=== PATIENT | male | born 1990 | race Caucasian/White ===

== ENCOUNTER 2018-12-31 14:26 | Emergency (ER) | payer OTHER ==
[2018-12-31 14:31] VITALS: BP 112/76
--- NOTE | 2018-12-31 14:34 | EDPHY ---
H & P Stated Complaint: tooth pain Time Seen by Provider: 12/31/18 14:33 HPI/ROS: HPI: This is a 28-year-old male who presents with Chief Complaint: Right lower tooth pain, impacted wisdom tooth Location: [place] tooth Quality: Sharp, constant pain Duration: 2 days Signs and Symptoms: no fever, no nausea, no vomiting, no photophobia, no noise sensitivity, no neck stiffness, no ear pain, no tinnitus, no nasal congestion, no sinus pressure, no weakness, no radiation, no aura, no difficulty swallowing , no difficulty talking Timing: Acute on chronic Severity: Moderate Context: Patient is a tobacco user, recently moved to the area, no primary care provider or dentist, presents with 2 day history of right lower wisdom tooth pain that radiates into his right lower job. He reports that the pain worsens with eating foods. He describes that pain as sharp and constant. He denies any fever, difficulty opening his mouth, difficulty talking, difficulty swallowing. Allergic to penicillin. Modifying Factors: Tried [id number] pain medications without relief Comment: ROS: A comprehensive 10 system review of systems is otherwise negative aside from elements mentioned in the history of present illness. MEDICAL/SURGICAL/SOCIAL HISTORY: Medical history: Generally healthy. Does not take any regular medications. Surgical history: Right shoulder surgery Social history: Tobacco user. Family history noncontributory. CONSTITUTIONAL: Smells heavily of tobacco, adult white male, awake and alert, no obvious distress HEENT: Atraumatic and normocephalic, PERRL, EOMI. Nares patent; no rhinorrhea; no nasal mucosal edema. Tympanic membranes clear. + halitosis. Oropharynx clear, right lower wisdom T is partially impacted with no surrounding erythema, induration, fluctuance. Poor dentition noted throughout. Able to open up mouth 3 finger with wide. No TMJ pain. No facial redness. No malocclusion. no exudate and moist pink mucosa. Airway patent. No lymphadenopathy. No meningismus. Cardiovascular: Normal S1/S2, regular rate, regular rhythm, without murmur rub or gallop. PULMONARY/CHEST: Symmetrical and nontender. Clear to auscultation bilaterally. Good air movement. No accessory muscle usage. ABDOMEN: Soft, nondistended, nontender, no rebound, no guarding, no peritoneal signs, no masses or organomegaly. No CVAT. EXTREMITIES: 2/2 pulses, strength 5/5, no deformities, no clubbing, no cyanosis or edema. NEUROLOGICAL: no focal neuro deficits. GCS 15. Speech clear. SKIN: Warm and dry, lethargy, no erythema. no rash. Good capillary refill. Source: Patient Exam Limitations: No limitations - Personal History Current Tetanus/Diphtheria Vaccine: No Current Tetanus Diphtheria and Acellular Pertussis (TDAP): No - Medical/Surgical History Hx Asthma: No Hx Chronic Respiratory Disease: No Hx Diabetes: No Hx Cardiac Disease: No Hx Renal Disease: No Hx Cirrhosis: No Hx Alcoholism: No Hx HIV/AIDS: No Hx Splenectomy or Spleen Trauma: No Other PMH: rt shoulder sx - Social History Smoking Status: Heavy smoker Constitutional: Initial Vital Signs Temperature (C) 36.4 C 12/31/18 14:29 Heart Rate 86 12/31/18 14:29 Respiratory Rate 16 12/31/18 14:29 Blood Pressure 112/76 12/31/18 14:29 O2 Sat (%) 97 12/31/18 14:29 O2 Delivery Mode Room Air Allergies/Adverse Reactions: Penicillins Allergy (Verified 12/31/18 14:32) Home Medications: Medication Instructions Recorded Clindamycin HCl [Clindamycin] 300 mg PO TID #30 cap 12/31/18 Medical Decision Making Procedures: Procedure: Dental block. After verbal informed consent was obtained explaining the risks including but not limited to infection and bleeding, a dental block was performed in the usual fashion under sterile technique on the right lower wisdom tooth. The patient was prepped and draped in the usual sterile fashion. The tooth was anesthetized with 3 cc of 1% lidocaine without epinephrine. Patient tolerated procedure well and noted immediate relief of pain. There were no complications. The procedure was performed by myself. ED Course/Re-evaluation: Vital signs reviewed and stable upon arrival. No signs of facial cellulitis, periapical abscess, malocclusion Penicillin allergy and given prescription for clindamycin Dental block performed with immediate relief of pain. Referral given to dental aide Advised to stop smoking. This patient was seen under the supervision of my secondary supervising physician. I evaluated and cared for this patient independently. Differential Diagnosis: Differential diagnosis includes but is not limited to dental cavity, impacted tooth, nerve injury. Departure - Departure Disposition: Home, Routine, Self-Care Clinical Impression: Odontalgia, Tooth impaction Condition: Good Instructions: Toothache (ED) Additional Instructions: Take antibiotic as directed to prevent infection. Call dental aide for a follow-up appointment. Referrals: [facility] [Outside] - As per Instructions Prescriptions: Clindamycin HCl [Clindamycin] 300 mg PO TID #30 cap
== END 2018-12-31 14:49 | disposition home or self-care (01) ==
PROC: 3E0X3BZ Introduction of Anesthetic Agent into Cranial Nerves, Percutaneous Approach (ICD-10-PCS; principal; 2018-12-31)
DX: K08.89 Other specified disorders of teeth and supporting structures (principal); K01.1 Impacted teeth